=== PATIENT | male | born 1970 | race African-American/Black ===

== ENCOUNTER 2016-09-12 13:35 | Emergency (ER) ==
[2016-09-12 13:57] VITALS: BP 124/081
--- NOTE | 2016-09-12 14:43 | PROVIDER DOCUMENTATION ---
HPI-EENT General - General Chief Complaint: Earache Stated Complaint: EAR COMPLAINT Time Seen by Provider: 09/12/16 14:31 Source: patient Allergies/Adverse Reactions: Patient Allergies Allergy/AdvReac Type Severity Reaction Status Date / Time No Known Allergies Allergy Verified 09/12/16 13:56 Home Medications: Home Medication List Medication Instructions Recorded Confirmed Last Taken Type No Home Medications 09/12/16 09/12/16 Unknown History - History of Present Illness-EENT General Nature of Presenting Problem: pt is a 46 yo M that presents with left ear pain and hearing decreasing x 4 days. patient believes it could have build up of was. He attempted to use air compressed air to relieve and other OTC EENT Location: reports: ear (L) Quality of Pain: reports: dull Severity: reports: mild Onset/Duration: reports: abrupt, 4 days ago Timing: reports: still present, constant Prearrival Treatment: Initiated no prearrival treatment Associated Symptoms: reports: change in hearing. denies: cough, facial pain/ swelling, fever, nasal congestion/drainage, sore throat Locality of Occurance: Home Similar Symptoms Previously?: No Recently seen or treated by another doctor?: No - Ears Ear Problem Symptoms: reports: earache Ear Problem Context: reports: trauma to ear (sprayed compressed air into ear canal) Review of Systems - Adult - REVIEW OF SYSTEMS - ADULT Constitutional: reports: no symptoms reported Eyes: reports: no symptoms reported Ears, Nose, Mouth & Throat: reports: ear discharge, ear pain, hearing loss Cardiovascular: reports: no symptoms reported Respiratory: reports: no symptoms reported Gastrointestinal: reports: no symptoms reported Genitourinary: reports: no symptoms reported Musculoskeletal: reports: no symptoms reported Integumentary: reports: no symptoms reported Neurological: reports: no symptoms reported Psychiatric: reports: no symptoms reported Endocrine: reports: no symptoms reported Hematologic/Lymphatic: reports: no symptoms reported Allergic/Immunologic: reports: no symptoms reported All Other Systems: Reviewed and Negative Past History - Adult - PAST MEDICAL HISTORY-ADULT Review of Records: reports: Old Records Reviewed, Nursing Assessment Review, Medications Reviewed Major Childhood Illnesses: reports: denies history Cardiovascular: reports: denies history Respiratory: reports: denies history Gastrointestinal: reports: denies history Obstetrical/Gynecological: reports: denies history Genitourinary: reports: denies history Musculoskeletal: reports: denies history Neurological: reports: denies history Endocrine/Immune: reports: denies history Other Conditions: reports: denies history - PRIOR HOSPITALIZATIONS Prior Hospitalizations: reports: none - IMMUNIZATION STATUS Childhood Immunizations: See Nurse Assessment Flu Vaccine: See Nurse Assessment - FAMILY HISTORY Family History: reviewed, not pertinent - SOCIAL HISTORY Smoking: cigarettes, less than 1 pack/day Alcohol Use Frequency: rarely Living Situation: family Physical Exam- EENT - Physical Exam EENT Initial Vital Signs Reviewed: Yes General Appearance: alert, no apparent distress Eye Exam: bilateral eye: normal inspection, PERRL Ear Exam: right ear: TM normal, left ear: other (cerumen impaction) Nasal Exam: normal inspection Throat Exam: normal mouth inspection, pharynx normal Neck: full range of motion, normal inspection Respiratory: lungs clear, normal breath sounds, no respiratory distress, no accessory muscle use Cardiovascular: regular rate, rhythm, no murmur Abdominal Exam: normal bowel sounds, non tender, soft Extremity: normal range of motion, normal inspection Integumentary: normal color, warm/dry Neurologic: grossly normal, no motor/sensory deficits Psych/Mental Status: normal mood/affect, normal thought content, normal thought process, oriented x 3 Progress - PLAN OF CARE/RESULTS Progress/Plan/Lab Results: Vital Signs Temp Pulse Resp BP Pulse Ox 09/12/16 13:53 98.8 F 86 20 124/081 99 No Known Allergies Allergy (Verified 09/12/16 13:56) No Home Medications 09/12/16 pt will be d/c home, f/u with ENT< pt was clinically stable Departure - Departure Time of Disposition Order: 14:41 DIAGNOSIS: Impacted cerumen of left ear Disposition: HOME 01 Certified Medical Emergency: Emergent Condition: Stable Additional Instructions: follow up with ENT ED Follow Up Instructions: You have been treated by a care provider in the Emergency Department. These instructions are being provided to you so you can have an understanding of how to care for yourself upon discharge. Upon discharge from the Emergency Department, you are responsible for making arrangements for follow-up care by a physician of your choice. Take all prescribed medications as directed. Return to the Emergency Department immediately for any new or worsening symptoms. You may call the Physician Referral phone number at [phone] to obtain a list of Physicians who are taking new patients. Referrals: None,PCP [Primary Care Provider] - Juarez Sutton MD [STAFF PHYSICIAN] - Call for Appoint. 1-2days Remigio Chan MD [STAFF PHYSICIAN] - Call for Appoint. 1-2days Instructions: Cerumen Impaction Attestation - Scribe Verification/Attestation Scribe:: Jose Guadalupe Saavedra Acting as Scribe for:: Patricia Blue Scribe documention review:: This chart was documented by a scribe and accurately reflects the service the provider performed and the decisions made by the provider. Physician Attestation - Physician Attestation I, the provider, attest to the following statement:: Patricia Blue Physician documentation Attestation:: This documentation recorded by the scribe accurately reflects the service I personally performed and the decisions made by me.
== END 2016-09-12 15:17 | disposition home or self-care (01) ==
LOC: P.ED 13:35
DX: H61.22 Impacted cerumen, left ear (principal); H92.02 Otalgia, left ear; H92.12 Otorrhea, left ear; H91.92 Unspecified hearing loss, left ear; F17.210 Nicotine dependence, cigarettes, uncomplicated
CPT/HCPCS: 99282